=== PATIENT | male | born 1935 | race Caucasian/White ===

== ENCOUNTER 2017-08-06 10:36 | Emergency (ER) | payer MEDICARE ==
[~2017-08-06] VITALS: Ht 180.3 cm; Wt 110.0 kg
[~2017-08-06 10:36] MED LIST: 1-ME1LIQ PO; ASPI81TA82 PO; CARV12.52 PO; CO Q100C9 PO; FISHCAP; LISI-363 PO; MAGN500T4 PO; NITR.4 SL; PRAM1 PO; PROBCAP4 PO; ROSU40 PO; VITA500015 PO
[2017-08-06 10:48] VITALS: BP 129/59; PULSE 60; RESP 21; TEMP 97.6; O2SAT 95
[2017-08-06] MEDS ORDERED: SODIUM CHLORIDE 0.9% FLUSH 10 ML FLUSH IVF PRN (11:00)
--- NOTE | 2017-08-06 11:12 | PD ---
HPI Chief Complaint: GI Complaint Time Seen by Provider: 10:50 Travel History International Travel<30 days: No Contact w/Intl Traveler<30days: No Traveled to known affect area: No History of Present Illness HPI This patient is sent from the residential for episode of rectal bleeding this morning. Yesterday he had normal bowel movement. Today is when the bleeding started. Duration 2 hours. He denies presyncopal symptoms or abdominal pain. He denies prior history of GI bleeding. He takes a baby aspirin daily. He has no idea when his last colonoscopy was. He does have some degree of dementia per his chart. No alleviating factors. No exacerbating factors. Symptom severity is moderate. PFSH Past Medical History Hx Anticoagulant Therapy: No (ASPIRIN) Cardiovascular Problems: Yes (CAD, CARDIAC STENT , HTN , [place]) High Cholesterol: Yes Coronary Artery Disease: Yes Diminished Hearing: Yes GERD: Yes Hypertension: Yes Past Surgical History Abdominal Surgery: Yes (umbillical hernia) Coronary Stent: Yes (THREE) Joint Replacement: Yes (LEFT KNEE) Prostatectomy: Yes Other Surgery: Yes Social History Alcohol Use: Yes (OCC) Tobacco Use: No Substance Use: No Allergies-Medications (Allergen,Severity, Reaction): Coded Allergies: No Known Allergies (Unverified , 08/20/15) Reported Meds & Prescriptions Reported Meds & Active Scripts Active Reported Pramipexole (Pramipexole Dihydrochloride) 1 Mg Tab 1 Mg PO DAILY Hydralazine (Hydralazine HCl) 100 Mg Tab 50 Mg PO TID Take with meals [Prevagen] 1 Tab PO DAILY Coq-10 (Coenzyme Q10 (Ubidecarenone)) 400 Mg Cap Osteo Bi-Flex Advanced Tr ([facility] Natural Products) 750 Mg-644 Mg-30 Mg-1 Mg-1.5 Mg Tab 1 Tab PO DAILY Vitamin D3 (Cholecalciferol) 1,000 Unit Tab 1,000 Units PO DAILY Probiotic (Saccharomyces Boulardii) 250 Mg Cap 250 Mg PO DAILY Potassium Chloride ER (Potassium Chloride) 10 Meq Cap 10 Meq PO BID Escitalopram (Escitalopram Oxalate) 20 Mg Tab 20 Mg PO DAILY Lisinopril 10 Mg Tab 10 Mg PO HS Benicar (Olmesartan) 40 Mg Tab 40 Mg PO DAILY Lasix (Furosemide) 20 Mg Tab 20 Mg PO BID Zantac (Ranitidine HCl) 150 Mg Tab 150 Mg PO BID Clonidine 168 HR Patch (Clonidine HCl) 0.2 Mg/24 Hr Patch 1 Patch T-DERMAL Q7D Aspirin Children's (Aspirin) 81 Mg Chew 81 Mg CHEW DAILY Rosuvastatin (Rosuvastatin Calcium) 10 Mg Tab 10 Mg PO HS Tamsulosin (Tamsulosin HCl) 0.4 Mg Cap 0.4 Mg DAILY Carvedilol 12.5 Mg Tab 12.5 Mg PO BID Review of Systems General / Constitutional: No: Fever Eyes: No: Visual changes HENT: No: Headaches Cardiovascular: No: Chest Pain or Discomfort Respiratory: No: Shortness of Breath Gastrointestinal: Positive: Hematochezia, No: Abdominal Pain Genitourinary: No: Dysuria Musculoskeletal: No: Pain Skin: No Rash Neurologic: No: Weakness Psychiatric: No: Depression Endocrine: No: Polydipsia Hematologic/Lymphatic: No: Easy Bruising Physical Exam Narrative GENERAL: Well-nourished, well-developed patient in no apparent distress. SKIN: Focused skin assessment reveals no rash and nodules. Skin is Warm and dry. HEAD: Atraumatic. Normocephalic. EYES: Pupils equal and round. No scleral icterus. No injection or drainage. ENT: No nasal bleeding or discharge. Mucous membranes pink and moist. NECK: Trachea midline. No JVD. CARDIOVASCULAR: Regular rate and rhythm. No murmur appreciated. RESPIRATORY: No accessory muscle use. Clear to auscultation. Breath sounds equal bilaterally. GASTROINTESTINAL: Abdomen soft, easily reducible central abdominal hernia, nontender, nondistended. Hepatic and splenic margins not palpable. MUSCULOSKELETAL: No obvious deformities. No clubbing. No cyanosis. No edema. NEUROLOGICAL: Awake and alert. No obvious cranial nerve deficits. Motor grossly within normal limits. Normal speech. PSYCHIATRIC: Appropriate mood and affect; insight and judgment somewhat reduced Rectal: There is some dried red blood around the anal opening. Small external hemorrhoid Data Data Last Documented VS Vital Signs Date Time Temp Pulse Resp B/P (MAP) Pulse Ox O2 Delivery O2 Flow Rate FiO2 08/06/17 10:48 97.6 60 21 129/59 (82) 95 Orders Orders Basic Metabolic Panel (Bmp) (08/06/17 10:57) Complete Blood Count With Diff (08/06/17 10:57) Prothrombin Time / Inr (Pt) (08/06/17 10:57) Act Partial Throm Time (Ptt) (08/06/17 10:57) Ecg Monitoring (08/06/17 10:57) Iv Access Insert/Monitor (08/06/17 10:57) Sodium Chloride 0.9% Flush (Ns Flush) (08/06/17 11:00) Labs Laboratory Tests Test 08/06/17 11:10 White Blood Count 6.8 TH/MM3 Red Blood Count 4.32 MIL/MM3 Hemoglobin 13.2 GM/DL Hematocrit 38.4 % Mean Corpuscular Volume 88.8 FL Mean Corpuscular Hemoglobin 30.6 PG Mean Corpuscular Hemoglobin Concent 34.4 % Red Cell Distribution Width 14.7 % Platelet Count 166 TH/MM3 Mean Platelet Volume 8.6 FL Neutrophils (%) (Auto) 73.1 % Lymphocytes (%) (Auto) 15.1 % Monocytes (%) (Auto) 6.0 % Eosinophils (%) (Auto) 5.0 % Basophils (%) (Auto) 0.8 % Neutrophils # (Auto) 5.0 TH/MM3 Lymphocytes # (Auto) 1.0 TH/MM3 Monocytes # (Auto) 0.4 TH/MM3 Eosinophils # (Auto) 0.3 TH/MM3 Basophils # (Auto) 0.1 TH/MM3 CBC Comment DIFF FINAL Differential Comment Prothrombin Time 10.9 SEC Prothromb Time International Ratio 1.1 RATIO Activated Partial Thromboplast Time 28.1 SEC Blood Urea Nitrogen 41 MG/DL Creatinine 1.81 MG/DL Random Glucose 106 MG/DL Calcium Level 8.6 MG/DL Sodium Level 144 MEQ/L Potassium Level 3.7 MEQ/L Chloride Level 105 MEQ/L Carbon Dioxide Level 33.5 MEQ/L Anion Gap 6 MEQ/L Estimat Glomerular Filtration Rate 36 ML/MIN [facility] Medical Decision Making Medical Screen Exam Complete: Yes Emergency Medical Condition: Yes Medical Record Reviewed: Yes Differential Diagnosis Diverticulosis, AV malformation, tumor Narrative Course I have reviewed the patient's electronic medical record. Reviewed his residential paperwork and medication list IV placed and labs sent abdomen is soft and benign and nontender CBC is normal Metabolic profile is normal Coagulation studies are normal Patient's vital signs are normal and he is basically asymptomatic Had a lengthy discussion with his children Recommend transfer back to residential. No indication of hospital stay. They are aware that I am recommending he stop his aspirin for the short-term and obtain colonoscopy to figure out where the bleeding is coming from. He apparently has an upcoming trip to [place] planned and I do not recommend he fly to [place] in the midst of a GI bleed. Diagnosis Primary Impression: Rectal bleeding Additional Instructions: Recommend GI follow-up and colonoscopy Stop aspirin I do not recommend you fly to [place] in the midst of a GI bleed Med/Other Pt SpecificInfo: Other Disposition: 03 DISCHARGE TO SNF Condition: Stable Chacho Pineda MD August 06, 2017 11:12
[2017-08-06 11:24] LABS: BASOPHIL # 0.1 TH/MM3 (0-0.2); BASOPHIL % 0.8 % (0.0-2.0); EOSINOPHIL # 0.3 TH/MM3 (0-0.4); HEMATOCRIT 38.4 % (39.0-51.0); HEMOGLOBIN 13.2 GM/DL (13.0-17.0); LYMPH % 15.1 % (9.0-44.0); MEAN CELL VOLUME 88.8 FL (80.0-100.0); MEAN CORPUSCULAR HEMOGLOBIN 30.6 PG (27.0-34.0); MEAN CORPUSCULAR HGB CONC 34.4 % (32.0-36.0); MEAN PLATELET VOLUME 8.6 FL (7.0-11.0); MONOCYTE # 0.4 TH/MM3 (0-0.9); NEUT % 73.1 % (16.0-70.0); PLATELET COUNT 166 TH/MM3 (150-450); RED BLOOD COUNT 4.32 MIL/MM3 (4.50-5.90); RED CELL DISTRIBUTION WIDTH 14.7 % (11.6-17.2); WHITE BLOOD COUNT 6.8 TH/MM3 (4.0-11.0)
[2017-08-06 11:31] LABS: INTERNATIONAL NORMALIZED RATIO 1.1 RATIO; PROTHROMBIN TIME - PATIENT 10.9 SEC (9.8-11.6)
[2017-08-06] MEDS ORDERED: CLON0.2D T-DERMAL (11:33)
[2017-08-06] MEDS ORDERED: POTA10CA PO (11:33)
[2017-08-06] MEDS ORDERED: ASPI81CH7 CHEW (11:33)
[2017-08-06] MEDS ORDERED: ESCI20TA PO (11:33)
[2017-08-06] MEDS ORDERED: LISI10TA3 PO (11:33)
[2017-08-06] MEDS ORDERED: ROSU1TAB6 PO (11:33)
[2017-08-06] MEDS ORDERED: ZANT150T2 PO (11:33)
[2017-08-06] MEDS ORDERED: CARV12.52 PO (11:33)
[2017-08-06] MEDS ORDERED: BENI40TA29 PO (11:33)
[2017-08-06] MEDS ORDERED: TAMS0.4C4 (11:33)
[2017-08-06] MEDS ORDERED: FURO1TAB62 PO (11:33)
[2017-08-06] MEDS ORDERED: HYDR-3801 PO (11:34)
[2017-08-06] MEDS ORDERED: PREVAGEN PO (11:34)
[2017-08-06] MEDS ORDERED: VITA100064 PO (11:34)
[2017-08-06] MEDS ORDERED: COEN400C (11:34)
[2017-08-06] MEDS ORDERED: OSTETAB2 PO (11:34)
[2017-08-06] MEDS ORDERED: SACC1CAP3 PO (11:34)
[2017-08-06] MEDS ORDERED: PRAM1TAB PO (11:34)
[2017-08-06 11:37] LABS: BICARBONATE 33.5 MEQ/L (21.0-32.0); CALCIUM 8.6 MG/DL (8.5-10.1); CREATININE 1.81 MG/DL (0.60-1.30)
[2017-08-06 13:46] VITALS: BP 134/62
== END 2017-08-06 13:55 ==
LOC: NEPC 10:36
DX: K62.5 Hemorrhage of anus and rectum (principal); I10 Essential (primary) hypertension; I25.10 Atherosclerotic heart disease of native coronary artery without angina pectoris; K21.9 Gastro-esophageal reflux disease without esophagitis; E78.00 Pure hypercholesterolemia, unspecified; H91.90 Unspecified hearing loss, unspecified ear; Z79.82 Long term (current) use of aspirin
CPT/HCPCS: 80048; 85025; 85610; 85730; 99283